=== PATIENT | male | born 1985 | race Caucasian/White ===

== ENCOUNTER 2020-03-09 01:52 | Observation (INO) ==
[2020-03-09 02:20] LABS: Hematocrit 44.7 % (37.5-50.1); Hemoglobin 15.6 g/dL (12.9-16.9); Mean Corpuscular HGB Conc 34.9 g/dL (31.6-35.5); Mean Corpuscular Hemoglobin 30.5 pg (28.0-33.3); Mean Corpuscular Volume 87.5 fL (83.0-100.0); Mean Platelet Volume 8.7 fL (9.4-12.4); Platelet Count 318 K/mcL (140-400); Red Blood Count 5.11 M/mcL (4.19-5.50); Red Cell Distribution Width 11.3 % (11.5-14.5); White Blood Count 9.9 K/mcL (4.3-11.1)
[2020-03-09 02:26] LABS: Prothrombin Time 11.7 Seconds (9.4-12.1)
[2020-03-09 02:28] LABS: Activated Partial Thrombo Time 28.8 Seconds (26.0-36.0)
[2020-03-09 02:34] LABS: Alanine Aminotransferase 18 Units/L (7-52); Albumin 4.8 g/dL (3.5-5.7); Alkaline Phosphatase 29 Units/L (34-104); Aspartate Amino Transferase 22 Units/L (13-39); BUN/Creatinine Ratio 8 (6-26); Bilirubin,Direct 0.1 mg/dL (0.0-0.2); Bilirubin,Indirect 0.5 mg/dL (0.0-1.0); Bilirubin,Total 0.6 mg/dL (0.3-1.0); Blood Urea Nitrogen 7 mg/dL (6-20); Calcium 9.1 mg/dL (8.6-10.3); Carbon Dioxide 26 mEq/L (23-29); Chloride 100 mEq/L (98-107); Ethanol 11 mg/dL (Less than 10); Globulin 2.4 g/dL (2.4-3.5); Glucose 112 mg/dL (70-105); Osmolality,Calculated 285 (280-300); Potassium 3.1 mEq/L (3.5-5.1); Sodium 138 mEq/L (136-145); Total Protein 7.2 g/dL (6.4-8.9); Troponin I < 0.03 ng/mL (< 0.04); eGFR For African Americans > 60 (> 60); eGFR For Non-African Americans > 60 (> 60)
[2020-03-09] MEDS ORDERED: Isovue-370 500 ML BOTTLE IVP ONE (02:48)
[2020-03-09 05:46] LABS: Bilirubin,Urine Negative (Negative); Blood,Urine Negative (Negative); Clarity,Urine Clear (Clear); Color,Urine Light-Yellow (Yellow); Glucose,Urine (UA) Normal (Normal); Ketones,Urine Negative (Negative); Leukocyte Esterase,Urine Negative (Negative); Nitrite,Urine Negative (Negative); Protein,Urine Negative (Neg-Trace); Specific Gravity,Urine > 1.030 (1.010-1.025)
[2020-03-09 05:56] LABS: Amphetamine Screen,Urine Negative ng/mL (Cutoff=1000); Barbiturate Screen,Urine Negative ng/mL (Cutoff=200); Benzodiazepines Screen,Urine Negative ng/mL (Cutoff=200); Cannabinoid Screen,Urine Positive ng/mL (Cutoff = 50); Cocaine Screen,Urine Negative ng/mL (Cutoff= 300); Opiate Screen,Urine Negative ng/mL (Cutoff=300); Phencyclidine Screen,Urine Negative ng/mL (Cutoff=25)
[2020-03-09] MEDS ORDERED: Naloxone 0.4 MG/ML INJ IVP PRN (07:23)
[2020-03-09] MEDS ORDERED: Ondansetron 4 MG/2 ML VIAL IVP PRN (07:23)
[2020-03-09] MEDS ORDERED: Perflutren Lipid Microsphere 1.3 ML in 0.9 % Sodium Chloride 8.7 ML IVP PRN (07:27)
[2020-03-09] MEDS: Potassium Chloride Elixir 20 MEQ/15 ML UDC PO SCH ×2 (08:25→11:54)
[2020-03-09] MEDS ORDERED: 0.9 % Sodium Chloride 1,000 ML IVC SCH (08:45)
[2020-03-09] MEDS ORDERED: Aspirin 81 MG TAB.CHEW PO SCH (09:00)
[2020-03-09 11:24] VITALS: BP 129/84
== END 2020-03-09 16:04 | disposition home or self-care (01) ==
LOC: EMEROOARM 01:52 → 3BNU 01:52
PROVIDERS: ADMIT Internal Medicine; ATTEND Internal Medicine